=== PATIENT | male | born 1985 | race Caucasian/White ===

== ENCOUNTER → 2020-04-18 17:07 | Outpatient (CLI) | payer OTHER, SELFPAY ==
--- NOTE | ~2020-04-18 | XR_ITS ---
EXAMINATION: XR chest 2V EXAM DATE: 04/18/2020 17:30 INDICATION: Persistent cough. Symptoms one month. History of asthma. TECHNIQUE: Frontal and lateral projections of the chest obtained and reviewed. There is no prior rio dy for comparison. FINDINGS: Mild hyperinflation. The lungs are clear. There are no pleural effusions. The cardiomedi astinal silhouette is within normal limits. There is no pneumothorax suspected. The bones and soft tissues are unremarkable. IMPRESSION: Mild hyperinflation. Reviewed, dictated and finalized at location A. IMPRESSION: Mild hyperinflation.
== END ==
PROVIDERS: Visit Provider Nurse Practitioner
DX: R05 Cough (principal); R91.8 Other nonspecific abnormal finding of lung field
CPT/HCPCS: 71046

== ENCOUNTER 2022-10-25 08:18 | Emergency (ER) | payer OTHER, SELFPAY ==
--- NOTE | 2022-10-25 08:24 | ED.SKABFB ---
HPI - Skin/Abscess/Foreign Bdy General Chief complaint: Skin/Abscess/Foreign Body Stated complaint: rash on back Time Seen by Provider: 10/25/22 09:00 Source: patient, RN notes reviewed and old records reviewed Mode of arrival: ambulatory Limitations: no limitations History of Present Illness HPI narrative: 37 year old male presents to express care with complaints of redness to skin in right lower back noted on Thursday with blistery type of rash noted on of this week. Patient reports that blistery area is painful and itchy. Patient reports that he does have some discomfort in his right leg also. Patient denies any fevers chills or sweats or myalgia, denies any headache or any visual changes. Pateint reports that he has been taking some Ibuprofen for his discomfort. MD complaint: rash (blistery rash right lower back since ,prior redness to area only since Thursday) Onset (ago): day(s) Location: back (right lower back) Severity scale (1-10): 5 Treatments prior to arrival: other (ibuprofen) Related Data Home Medications Medication Instructions Recorded Confirmed albuterol sulfate 90 mcg/actuation 1 puff inhalation PRN Shortness Of 10/25/22 10/25/22 aerosol inhaler Breath budesonide-formoterol HFA 160 1 inh inhalation DAILY 10/25/22 10/25/22 mcg-4.5 mcg/actuation aerosol inhaler (Symbicort) omeprazole 20 mg capsule,delayed 20 mg PO DAILY 10/25/22 10/25/22 release Allergies Allergy/AdvReac Type Severity Reaction Status Date / Time No Known Allergies Allergy Verified 10/25/22 08:40 Review of Systems Review of Systems: CONSTITUTIONAL: Denies fever, chills, or sweats. CARDIOVASCULAR: Denies chest pain, palpitations, or edema. RESPIRATORY: Denies cough or dyspnea. SKIN: Reports redness to right lower back area on Thursday with blistery rash noted to area on . MUSCULOSKELETAL: Denies joint pain, reports some myalgia to right leg NEUROLOGIC: Denies headache, numbness, or weakness. All systems reviewed & are unremarkable except as noted in HPI and below PMFSH Past Medical History Medical History (Updated 10/27/22 @ 11:05 by Renetta Sparrow NP) Asthma GERD (gastroesophageal reflux disease) Surgical History Surgical History (Updated 10/25/22 @ 09:49 by Renetta Sparrow NP) History of tonsillectomy Social History Social History (Updated 10/25/22 @ 09:50 by Renetta Sparrow NP) Smoking status: Never smoker Alcohol intake: current Alcohol use details: rare social Substance use type: does not use Living arrangements: with family Gender identity (if verbalized by the patient): Male Comments At time of signature, agree with nursing past medical, surgical, social and family history. There is no relevant family history pertinent to the presenting complaint Exam Narrative: GENERAL: Well-appearing, well-nourished, and in no acute distress. HEAD: Normocephalic, atraumatic. EYES: PERRLA, conjunctivae clear, and EOMI. ENT: Mucous membranes moist. Oropharynx without edema, erythema or lesions. NECK: Supple. No lymphadenopathy CHEST: Clear to auscultation. No respiratory distress. HEART: Regular rate and rhythm. SKIN: Warm, dry.? Patch of erythema with cluster of blistery rash to right lower back, some pain also to right lower extremity NEURO:? Alert and oriented x3. PSYCH: Normal mood and affect Course Course Emergency Course: Patient is aware of diagnosis, understands and agrees to treatment plan.? Anticipatory guidance given.? Patient agrees to follow-up as directed and is aware of reasons to seek care at the emergency department. Portions of this record may have been created with voice recognition software Level of Care: Express Care Visit Vital Signs Vital signs: Vital Signs Temperature 36.6 C 10/25/22 08:42 Pulse Rate 82 10/25/22 08:42 Respiratory Rate 16 10/25/22 08:42 Blood Pressure 116/79 10/25/22 08:42 Pulse Ox
[2022-10-25 08:42] VITALS: BP 116/79; PULSE 82; RESP 16; TEMP 36.6; O2SAT 99
== END 2022-10-25 09:30 | disposition home or self-care (01) ==
PROVIDERS: Emergency Provider Registered Nurse; PCP Internal Medicine
DX: B02.9 Zoster without complications (principal); J45.909 Unspecified asthma, uncomplicated; K21.9 Gastro-esophageal reflux disease without esophagitis
CPT/HCPCS: 99203; G0463

== ENCOUNTER 2023-02-28 08:02 | Emergency (ER) | payer OTHER, SELFPAY ==
--- NOTE | 2023-02-28 08:08 | ED.URI ---
HPI - URI/Sore Throat General Chief Complaint: Upper Respiratory Infection Stated Complaint: SORE THROAT/COUGH Time Seen by Provider: 02/28/23 08:24 Source: patient and RN notes reviewed Mode of arrival: ambulatory Limitations: no limitations History of Present Illness HPI Narrative: 37-year-old male presents with concern for worsening sore throat. He reports nasal congestion, rhinorrhea, cough, sore throat, swollen tender lymph nodes. Reports symptoms started on Thursday and have gotten worse. Reports he has been using ibuprofen with some relief of the sore throat. Reports he has had a tonsillectomy 13 years ago. He reports other members of his household have similar illness that are getting better MD elicited complaint: cough and sore throat Related Data Home Medications Medication Instructions Recorded Confirmed albuterol sulfate 90 mcg/actuation 1 puff inhalation DIRECTED PRN 10/25/22 02/28/23 aerosol inhaler Shortness Of Breath budesonide-formoterol HFA 160 1 inh inhalation DAILY 10/25/22 02/28/23 mcg-4.5 mcg/actuation aerosol inhaler (Symbicort) omeprazole 20 mg capsule,delayed 20 mg PO DAILY 10/25/22 02/28/23 release Allergies Allergy/AdvReac Type Severity Reaction Status Date / Time No Known Allergies Allergy Verified 02/28/23 08:23 Review of Systems Review of Systems: CONSTITUTIONAL: Reports malaise, fever. EYES: Denies visual changes, redness, or discharge. ENT: Reports rhinorrhea, congestion, and sore throat. Reports swollen lymph nodes CARDIOVASCULAR: Denies chest pain, palpitations, or edema. RESPIRATORY: Reports cough. Denies dyspnea. GASTROINTESTINAL: Denies abdominal pain, nausea, vomiting, diarrhea SKIN: Denies rash or itching. MUSCULOSKELETAL: Reports myalgia. NEUROLOGIC: Reports headache. All systems reviewed & are unremarkable except as noted in HPI and below PMFSH Past Medical History Medical History (Updated 02/28/23 @ 08:32 by Farheen Clemente NP) Asthma GERD (gastroesophageal reflux disease) Surgical History Surgical History (Updated 10/25/22 @ 09:49 by Renetta Sparrow NP) History of tonsillectomy Social History Social History (Updated 10/25/22 @ 09:50 by Renetta Sparrow NP) Smoking status: Never smoker Alcohol intake: current Alcohol use details: rare social Substance use type: does not use Living arrangements: with family Gender identity (if verbalized by the patient): Male Comments At time of signature, agree with nursing past medical, surgical, social and family history. There is no relevant family history pertinent to the presenting complaint Exam Narrative: GENERAL: Well-appearing, well-nourished, and in no acute distress. HEAD: Normocephalic EYES: PERRLA, conjunctivae clear ENT: Nares clear, turbinates edematous and erythematous, clear discharge. Mucous membranes moist. TM pearly hernandez with sharp light reflex bilaterally; no tragal tenderness. Oropharynx erythematous with excoriation. Tonsils not present but slight swelling with exudate noted on the right, no drooling, no hoarseness, no trismus, uvula midline. NECK: Supple. No lymphadenopathy CHEST: Clear to auscultation, breath sounds equal. No wheezing, rhonchi, rales, or stridor. No respiratory distress, speaks in full sentences. HEART: Regular rate and rhythm. No murmur heard. SKIN: Warm, dry, no rash. NEURO: Alert and oriented x3. PSYCH: Normal mood and affect Course Course Emergency Course: Patient is aware of diagnosis, understands and agrees to treatment plan. Anticipatory guidance given. Patient agrees to follow-up as directed and is aware of reasons to seek care at the emergency department. Portions of this record may have been created with voice recognition software Level of Care: Express Care Visit Vital Signs Vital signs: Reviewed. MDM - URI/Sore Throat MDM Narrative Medical decision making narrative: Differential diagnosis considered: Tinsley vir
[2023-02-28 08:09] VITALS: BP 118/80; PULSE 85; RESP 16; TEMP 36.4; O2SAT 100
== END 2023-02-28 08:39 | disposition home or self-care (01) ==
PROVIDERS: Emergency Provider Nurse Practitioner; PCP Internal Medicine
DX: J02.9 Acute pharyngitis, unspecified (principal); J45.909 Unspecified asthma, uncomplicated; K21.9 Gastro-esophageal reflux disease without esophagitis
CPT/HCPCS: 87081; 87804; 87880; 99213; G0463